=== PATIENT | female | born 1990 | race Caucasian/White ===

== ENCOUNTER → 2017-01-25 | Outpatient (CLI) | payer BC | LOC: BHSO 15:12 | DX: F41.1 Generalized anxiety disorder (principal) ==

== ENCOUNTER → 2017-07-22 | Outpatient (CLI) | payer BC | LOC: BHSO 09:42 | DX: F90.0 Attention-deficit hyperactivity disorder, predominantly inattentive type (principal) ==

== ENCOUNTER → 2018-01-20 | Outpatient (CLI) | payer BC | LOC: BHSO 12:57 | DX: F90.0 Attention-deficit hyperactivity disorder, predominantly inattentive type (principal) | CPT/HCPCS: G0463 ==

== ENCOUNTER → 2018-08-04 | Outpatient (CLI) | payer BC | LOC: BHSO 12:57 | DX: F90.0 Attention-deficit hyperactivity disorder, predominantly inattentive type (principal) | CPT/HCPCS: G0463 ==

== ENCOUNTER → 2019-01-30 | Outpatient (CLI) | payer BC | LOC: BHSO 12:59 | DX: F90.0 Attention-deficit hyperactivity disorder, predominantly inattentive type (principal) | CPT/HCPCS: G0463 ==

== ENCOUNTER → 2019-08-21 | Outpatient (CLI) | payer BC | LOC: BHSO 08:50 | DX: F41.1 Generalized anxiety disorder (principal) ==

== ENCOUNTER 2021-11-29 12:21 | Outpatient (CLI) | payer BC ==
[~2021-11-29] VITALS: Ht 167.6 cm; Wt 78.0 kg
--- NOTE | 2021-11-29 12:35 | NUR ---
259073.1, G1L0 arrives on unit with c/o increaed pink vaginal discharge and lower abdominal cramping/contractions every 30min while working. States she has only experienced one contraction in last 2 hours. Reports normal movement. Denies any bright red vaginal bleeding. Ambulatory to LDR3 and changes into clean gown. [id number] explained and placed. Assessment completed. VS obtained. 1311Dr. Roles updated on pt. See physician notification. Pt and spouse updated on plan of care. Denies questions or needs at this time.
[2021-11-29 12:40] VITALS: BP 122/84; PULSE 80; TEMP 98
[2021-11-29] MEDS ORDERED: GLUCOPHAGE500 MG/TAB PO (12:58)
[2021-11-29] MEDS ORDERED: PRENATAL TABLET PO (12:58)
[2021-11-29 13:30] VITALS: BP 124/85; PULSE 84
--- NOTE | 2021-11-29 13:40 | NUR ---
1340Dr. Roles on unit and reviews strips. See physician notification. 1343EFM off. Pt up to change. 1400Discharge instructions reviewed with pt and spouse who verbalize understanding. Ambulatory off unit.
[2021-11-29 13:43] VITALS: BP 120/86; PULSE 78
== END 2021-11-29 14:00 | disposition home or self-care (01) ==
LOC: LDRO 12:21
DX: O26.853 Spotting complicating pregnancy, third trimester (principal); O26.893 Other specified pregnancy related conditions, third trimester; R10.9 Unspecified abdominal pain; Z3A.38 38 weeks gestation of pregnancy

== ENCOUNTER 2021-12-06 09:16 | Inpatient (IN) | payer BC ==
[~2021-12-06] VITALS: Ht 167.6 cm; Wt 77.7 kg
[~2021-12-06 09:16] MED LIST: GLUCOPHAGE500 MG/TAB PO; PRENATAL TABLET PO
[2021-12-07] VITALS (17 sets, daily range): BP systolic 90–127; BP diastolic 57–75; PULSE 56–86; TEMP 98–98.7
--- NOTE | 2021-12-07 09:39 | NUR ---
178042.2, G1L0 arrives on unit for scheduled primary c/s. Ambulatory to 209 with spouse. Changes into clean gown. Reports normal movement, and rare ctx. Denies any LOF or VB. 0945IV to left wrist. Routine labs obtained. LR bolus infusing. Assessment completed. VS obtained. 1000Consent forms explained and signed. Plan of care reviewed. Pt resting with call light within reach.
[2021-12-07 10:03] LABS: BASO # 0.1 K/mm3 (0.0-0.2); BASO % 0.6 % (0.0-2.0); EOS # 0.1 K/mm3 (0.0-0.7); EOS % 0.8 % (0.0-4.0); GRAN # 7.1 K/mm3 (1.4-6.5); GRAN % 67.1 % (42.2-75.2); HEMATOCRIT 37.6 % (37.0-47.0); HEMOGLOBIN 13.3 g/dl (12.5-16.0); LYMPH # 2.6 K/mm3 (1.2-3.4); LYMPH % 24.9 % (20.0-51.0); MEAN CELL VOLUME 93 fl (80.0-100.0); MEAN CORPUSCULAR HEMOGLOBIN 33 pg (27-31); MEAN CORPUSCULAR HGB CONC 35 g/dl (33.0-37.0); MEAN PLATELET VOLUME 11.3 fl (7.4-10.4); MONO # 0.6 K/mm3 (0.1-0.6); PLATELET COUNT 256 K/mm3 (130-400); RED BLOOD COUNT 4.03 M/mm3 (4.10-5.30); REDCELL DISTRIBUTION WIDTH-CV 13.1 % (11.5-14.5)
--- NOTE | 2021-12-07 17:45 | NUR ---
1745 - ATTEMPT TO AMBULATE WITH PATIENT TO BATHROOM. PATIENT DIZZY UPON STANDING AT BEDSIDE. PATIENT RETURNED TO BED AND ENCOURAGED TO INCREASE FLUID INTAKE. FUNDUS FIRM. BLEEDING WNL. VSS - BP109/73 HR58 RR18 O2 96%. PLAN OF CARE TO ATTEMPT AMBULATION AFTER DINNER DISCUSSED WITH PATIENT AND SPOUSE. WILL CONTINUE TO MONITOR.
[2021-12-08 02:30] VITALS: BP 113/65; PULSE 77; TEMP 98
[2021-12-08 07:45] VITALS: BP 98/60; PULSE 73; TEMP 97.8
--- NOTE | 2021-12-08 09:40 | NUR ---
Initial visit; Parents thanked for offering congratulations and God's blessings for the of their son. Fire Inspector thanked family for choosing our hospital where great grandma is a volunteer.
[2021-12-08 16:30] VITALS: BP 114/68; PULSE 78; TEMP 98.7
[2021-12-08 21:00] VITALS: BP 115/63; PULSE 84; TEMP 97.7
[2021-12-09 08:30] VITALS: BP 111/74; PULSE 73; TEMP 98.1
[2021-12-09] MEDS ORDERED: PERCOCET 325 MG1 TA2 PO ×2 (13:20)
[2021-12-09] MEDS ORDERED: IBU800 M1 PO ×2 (13:20)
[2021-12-09 17:30] VITALS: BP 112/77; PULSE 88; TEMP 98.4
[2021-12-09 20:15] VITALS: BP 117/81; PULSE 78; TEMP 97.9
[2021-12-10 07:15] VITALS: BP 119/74; PULSE 70; TEMP 98.4
[2021-12-10] MEDS ORDERED: PERCOCET 325 MG1 TA2 PO (09:24)
[2021-12-10] MEDS ORDERED: IBU800 M1 PO (09:24)
== END 2021-12-10 10:55 | disposition home or self-care (01) | DRG 784 ==
LOC: LDR 12-07 09:15 → OB 12-07 09:35
PROVIDERS: ADMIT Obstetrics & Gynecology
PROC: 10D00Z1 Extraction of Products of Conception, Low, Open Approach (ICD-10-PCS; principal; 2021-12-07)
PROC: 0UB60ZZ Excision of Left Fallopian Tube, Open Approach (ICD-10-PCS; 2021-12-07)
DX: O44.23 Partial placenta previa NOS or without hemorrhage, third trimester (principal); O98.32 Other infections with a predominantly sexual mode of transmission complicating childbirth; N83.8 Other noninflammatory disorders of ovary, fallopian tube and broad ligament; O99.344 Other mental disorders complicating childbirth; F90.9 Attention-deficit hyperactivity disorder, unspecified type; O99.284 Endocrine, nutritional and metabolic diseases complicating childbirth; E03.9 Hypothyroidism, unspecified; E28.2 Polycystic ovarian syndrome; O09.03 Supervision of pregnancy with history of infertility, third trimester; O26.893 Other specified pregnancy related conditions, third trimester; N97.9 Female infertility, unspecified; A60.09 Herpesviral infection of other urogenital tract; O69.81X0 Labor and delivery complicated by cord around neck, without compression, not applicable or unspecified; Z3A.39 39 weeks gestation of pregnancy; Z37.0 Single live birth
CPT/HCPCS: J0690; J1885; J2175; J2270; J2370; J2590; J7120

== ENCOUNTER 2024-07-26 04:22 | Outpatient (CLI) | payer BC ==
[~2024-07-26] VITALS: Ht 170.2 cm; Wt 79.5 kg
[~2024-07-26 04:22] MED LIST changes: +IBU800 M1 PO; +PERCOCET 325 MG1 TA2 PO
[2024-07-26] MEDS ORDERED: LR 1,000 ML IV PRN (04:45)
[2024-07-26] MEDS ORDERED: GLUCOPHAGE XR500 M1 PO (05:00)
[2024-07-26 05:01] VITALS: BP 134/89; PULSE 62; TEMP 98.7
[2024-07-26 05:30] VITALS: BP 138/89; PULSE 56
--- NOTE | 2024-07-26 05:30 | NUR ---
DR HECK NOTIFIED PT IS HERE. SHE IS PLANNING TO . INFORMED HIM CTX'S STARTED 2300 LAST NIGHT, SOME ARE MUCH STRONGER THAN OTHERS. THE STRONG ONES SHE WILL STOP TALKING TO BREATH THROUGH THEM. SVE /-2. PINKISH BLOODY SHOW NOTED. GBS NEGATIVE. 39 WEEKS, FHR 125 CATEGORY 1. CTX'S HAVE BEEN 3-5 MINS ON THE MONITOR. PREIOUS C/S WAS FOR PARTIAL PLACENTA PREVIA. PT IS REQUESTING TO AMB IN [place]. ORDERS TO WATCH FOR ONE HOUR, PT MAY AMB IN THE [place], RECHECK CERVIX AND NOTIFY HIM. PT ALSO HAS THE OPTION TO GO HOME IF SHE WANTS TO.
--- NOTE | 2024-07-26 06:56 | NUR ---
0628 UMANG MUNOZ UPDATED ON PT RECHECK, SVE REMAINS UNCHANGED, FHTS REACTIVE, CTX PATTERN, PT GESTATION 38.5, PT STATEMENTS [place] LIVES IN [place]. GIVES ORDERS TO KEEP PT AN ADDITIONAL HOUR AND RECHECK PT AND CALL [facility] FOR FURTHER ORDERS. JURGEN WILCOX.
--- NOTE | 2024-07-26 06:59 | NUR ---
0687 RN BEDSIDE DISCUSSING POC WITH PT, RN RELAYS MD ORDERS, EXPLAINS LABOR CHECK REASONING/PROCESS. PT STATES "IM TO THE POINT WHERE I WANT AN EPIDURAL OR A POSSIBLE REPEAT ." RN RE-EXPLAINS PROCESS AND PLAN. PT VERBALIZES UNDERSTANDING.
--- NOTE | 2024-07-26 07:51 | NUR ---
0769 KENNY MUNOZ UPDATED ON PT ARRIVAL, HISTORY, SVE X2 UNCHANGED, FHTS REACTIVE, CTX PATTERN, RN PALPATED CTX X1 TO BE MILD TO MODERATE, PT STATEMENTS THAT SHE WOULD "LIKE AN EPIDURAL OR ", RN EXPLANATIONS OF PROCESS OF LABOR CHECKS, PT SCHEDULED FOR REPEAT ON 08/06. ORDERS FROM KENNY TO OFFER PT TYLENOL AND DISCHARGE HOME WITH LABOR PRECAUTIONS. RN RBVO.
--- NOTE | 2024-07-26 08:20 | NUR ---
0809 PT GIVEN BOTH WRITTEN AND VERBAL DISCHARGE INSTRUCTIONS. PT INSTRUCTED TO CALL/COME BACK IF PT NOTICES ANY LOF, VB, DFM, STRONG/REGULAR CTX OR ANY OTHER CHANGES/CONCERNS. PT VERBALIZES UNDERSTANDING AND ALL QUESTIONS ANSWERED AT THIS TIME.
== END 2024-07-26 08:10 | disposition home or self-care (01) ==
LOC: LDRO 04:22
DX: O47.9 False labor, unspecified (principal); Z3A.00 Weeks of gestation of pregnancy not specified

== ENCOUNTER 2024-07-26 13:43 | Outpatient (CLI) | payer BC ==
[2024-07-26] VITALS (7 sets, daily range): BP systolic 122–148; BP diastolic 76–95; PULSE 67–86; TEMP 97.7
[~2024-07-26] VITALS: Ht 167.6 cm; Wt 78.2 kg
[~2024-07-26 13:43] MED LIST changes: +GLUCOPHAGE XR500 M1 PO
--- NOTE | 2024-07-26 13:50 | NUR ---
PATIENT AMBUALTORY TO UNIT WITH SPOUSE, MARYANN. PATIENT ORIENTED TO LABOR ROOM 4 AND ASSISTED INTO A GOWN. PATIENT REPORTS MORE INTENSE CONTRACTIONS THAT ARE 2-3 MINUTES APART, NO LEAKING OF FLUID OR VAGINAL BLEEDING, AND GOOD MOVEMENT. EFM AND TOCO PLACED AND TRACING. SVE /-2. ASSESSMENTS COMPLETED. PATIENT UPDATED ON PLAN FOR LABOR CHECK.
[2024-07-26] MEDS ORDERED: LR 1,000 ML IV PRN (15:45)
--- NOTE | 2024-07-26 17:00 | NUR ---
DISCHARGE TEACHING REVIEWED WITH PAITENT AND SPOUSE, PATIENT VERBALIZES UNDERSTANDING. [facility] AMBULATORY OFF UNIT WITH SPOUSE IN STABLE CONDITION.
== END 2024-07-26 17:00 | disposition home or self-care (01) ==
LOC: LDRO 13:43
DX: Z34.93 Encounter for supervision of normal pregnancy, unspecified, third trimester (principal); Z3A.39 39 weeks gestation of pregnancy

== ENCOUNTER 2024-07-26 21:49 | Inpatient (IN) | payer BC ==
[~2024-07-26] VITALS: Ht 162.6 cm; Wt 71.8 kg
--- NOTE | 2024-07-26 21:50 | NUR ---
PT PRESENTS TO L&D AGAIN. SHE WAS HERE EARLIER TODAY BUT HER CERVIX DID NOT CHANGE SO SHE WAS DISCHARGED TO HOME. PT IS TRYING TO TOLAC AND DELIVER VAGINALY. PT IS CRYING, SHAKING, SWEATING, SHE STATES SHE HAS NOT BEEN ABLE TO EAT OR DRINK ANYTHING SINCE YESTERDAY. SHE IS VERY NAUSEATED AND HAS THROWN UP 6-7 TIMES TODAY. PT VERY STRESSED AND ANXIOUS STATES SHE CAN'T TAKE THE PAIN ANY MORE. THE CONTRACTIONS ARE GETTING WORSE AND SHE IS DEHYDRATED AND. PT LIPS ARE DRY AND CRACKED. PT TO BED, MONITORS ON FHR 145, CATEGORY 1. 3-4 MINS APART ARE PALPATING STRONG. SVE /-1.
[2024-07-26] MEDS ORDERED: LR 1,000 ML IV SCH (22:15)
[2024-07-26] MEDS ORDERED: ROPivacaine PF 0.2% 200 ML IV ONE (22:19)
[2024-07-26 22:30] VITALS: BP 100/68; PULSE 80; TEMP 98.6
--- NOTE | 2024-07-26 22:30 | NUR ---
pt sitting up for epidural placement. Dharmesh Serna SUSTAINABLE SYSTEMS ANALYST here. time out done.
[2024-07-26 22:31] LABS: BASO % 0.2 % (0.0-2.0); GRAN # 15.5 K/mm3 (1.4-6.5); GRAN % 84.1 % (42.2-75.2); HEMOGLOBIN 12.8 g/dl (12.5-16.0); LYMPH # 2.1 K/mm3 (1.2-3.4); LYMPH % 11.3 % (20.0-51.0); MEAN CELL VOLUME 91 fl (80.0-100.0); MEAN CORPUSCULAR HEMOGLOBIN 33 pg (27-31); MEAN CORPUSCULAR HGB CONC 36 g/dl (33.0-37.0); MEAN PLATELET VOLUME 11.3 fl (7.4-10.4); MONO # 0.7 K/mm3 (0.1-0.6); MONO % 3.9 % (1.7-9.3); PLATELET COUNT 249 K/mm3 (130-400); REDCELL DISTRIBUTION WIDTH-CV 13.1 % (11.5-14.5)
[2024-07-26 22:37] LABS: HEMATOCRIT 35.6 % (37.0-47.0)
[2024-07-26 23:00] VITALS: BP 118/77; PULSE 84; TEMP 98.2
[2024-07-26 23:15] VITALS: BP 114/69; PULSE 104
[2024-07-26 23:30] VITALS: BP 108/68; PULSE 114
--- NOTE | 2024-07-26 23:30 | NUR ---
MEJIA CATH PLACED WITH RETURN OF CLEAR YELLOW URINE. SVE /-1.
--- NOTE | 2024-07-26 23:36 | NUR ---
2335-- BP70/40, P 68, PT STATES SHE IS NAUSEATED. IV BOLUS STARTED. 2338-- EPHEDRINE 10 MG IVP GIVEN BP92/56 95/54 87/53 90/57 2352 ATTEMPTED TO CALL SHAYNE LOPEZ CRNA, NO ANSWER MULTIPLE TIME. CHARGE NURSE ARNALDO RN NOTIFIED I WAS NOT ABLE TO GET HOLD OF SHAYNE AND THERE WERE NO EPIDURAL ORDERS. ARNALDO CALLED MULTIPLE TIMES AND NOT ABLE TO GET HOLD OF SHAYNE. SHE CALLED SUNNY XIONG CRNA HE GAVE US ORDERS FOR EPHEDRINE A THRID DOSE AND TO BOLUS ANOTHER 500 CC IV LR. 2353--BP 77/50, 74/48, EPHEDRINE 10 MG IVP GIVEN. HOB DOWN, PILLOW PLACED UNDER PT'S LEGS 99/64 2358 IV BAG #3 LR HUNG AND BOLUSING 0010 BP 72/42 0012 EPHEDRINE 10MG #3 DOSE GIVEN IVP. 0013 ZOFRAN 4 MG IVP GIVEN 0020 BP 95/47, 79/46 0030 BP 149/70
[2024-07-26 23:45] VITALS: BP 95/51; PULSE 92
[2024-07-26] MEDS ORDERED: ePHEDrine 50 MG/ML VIAL IV ONE (23:45)
[2024-07-26] MEDS ORDERED: ePHEDrine 50 MG/10 ML VIAL IV ONE (23:51)
[2024-07-27] VITALS (56 sets, daily range): BP systolic 86–151; BP diastolic 51–97; PULSE 54–115; TEMP 97.8–99.3
[2024-07-27] MEDS ORDERED: Naloxone 0.4 MG/ML VIAL IV PRN ×2 (00:30→14:30)
[2024-07-27] MEDS ORDERED: diphenhydrAMINE 25 MG CAP PO PRN (00:30)
[2024-07-27] MEDS ORDERED: diphenhydrAMINE 50 MG/ML 1 ML VIAL IV PRN (00:30)
[2024-07-27] MEDS ORDERED: Ondansetron 4 MG/2 ML VIAL IV PRN (00:30)
[2024-07-27] MEDS ORDERED: ePHEDrine 50 MG/10 ML VIAL IV PRN (00:30)
--- NOTE | 2024-07-27 01:32 | NUR ---
DR COX HERE TO SEE PT, SVE /-1, AROM FLUID CLEAR WITH BLOODY SHOW NOTED. BP112/71, P 83 TEMP 98.7. PT TOLERATED PROCEDURE WELL.
[2024-07-27] MEDS ORDERED: Famotidine 20 MG TAB PO ONE (01:45)
--- NOTE | 2024-07-27 08:00 | NUR ---
DR. HECK AT BEDSIDE FOR SVE OF . DISCUSSED PITOCIN USE, PT AGREED TO STARTING PITOCIN.
[2024-07-27] MEDS ORDERED: LR & Oxytocin 500 ML IV SCH (08:15)
--- NOTE | 2024-07-27 11:35 | NUR ---
DR. HECK ON UNIT, DISCUSSED PT PROGRESS, REVIEWED EFM, WILL PERFORM SVE AFTER SUNNY DOSES EPIDURAL.
[2024-07-27] MEDS ORDERED: NS 10 ML IV ONE (11:51)
[2024-07-27] MEDS ORDERED: Lidocaine PF 2% (20 MG/ML) 5 ML VIAL ONE (11:51)
[2024-07-27] MEDS ORDERED: ROPivacaine PF 0.2% 200 ML IV ONE (11:59)
--- NOTE | 2024-07-27 13:02 | NUR ---
1146 PT COMPLETE +1 STATION. EFM CAT 2. VS STABLE. 1150 SUNNY, RETAIL DELIVERY DRIVER AT BEDSIDE TO BOLUS PT D/T R SIDE PAIN. 1152 SUNNY BOLUSED PT, VS STABLE, EFM CAT 1. 1220 MEJIA REMOVED, NOTIFIED OF SVE, STARTED PUSHING AT THIS TIME. 1255 CHARGE NURSE, NSY NURSE, THIS RN, AND AT BEDSIDE. ROOM SET FOR DELIVERY. 1302 OF VIABLE MALE PER . CORD CLAMPED AND CUT BY FOB, INFANT PLACED ON MATERNAL ABDOMEN AND CARE ASSUMED BY NSY RN. 1305 OF PLACENTA PER . FUNDUS FIRM AT U, LOCHIA WNL, VS STABLE. PT BEGAN FEELING LIGHT HEADED AND NAUSEOUS, BABY TAKEN TO FOB FOR SKIN TO SKIN, GAVE PT SPRITE, BP STABLE. BEGINS REPAIR OF SECOND DEGREE LACERATION, PT TOLERATED WELL. 1310 ROOM PUT BACK TOGETHER, ICE PACK PAD PLACED, PT COMFORTABLE. FUNDUS FIRM AT U, LOCHIA WNL, VS STABLE. BABY SKIN TO SKIN WITH FOB.
[2024-07-27] MEDS ORDERED: Loratadine 10 MG TAB PO PRN (13:30)
[2024-07-27] MEDS ORDERED: Magnes Hydrox (MOM) 80 MG/ML 30 ML CUP PO PRN (13:30)
[2024-07-27] MEDS ORDERED: Tdap Vaccine 0.5 ML SYRINGE IM SCH (14:30)
[2024-07-27] MEDS ORDERED: Phenylephrine/Mineral Oil/Petrolatum 57 GM TUBE RC PRN (14:30)
[2024-07-27] MEDS ORDERED: Ibuprofen 800 MG TAB PO SCH (14:30)
[2024-07-27] MEDS ORDERED: Witch Hazel 50% Pads Bulk TUB TP PRN (14:30)
[2024-07-27] MEDS ORDERED: Measles/Mumps/Rubella Virus Vaccine Live w Diluent 0.5 ML VIAL SQ SCH (14:30)
[2024-07-27] MEDS ORDERED: Mag/Al Hydrox/Simeth Susp 30 ML CUP PO PRN (14:30)
[2024-07-27] MEDS ORDERED: Acetaminophen 500 MG TAB PO SCH (14:30)
[2024-07-27] MEDS ORDERED: oxyCODONE 5 MG TAB PO PRN (14:30)
--- NOTE | 2024-07-27 16:30 | NUR ---
PT ABLE TO LIFTS LEGS AND HOLD 5 SECONDS EACH. MOVED TO SIDE OF BED, EPIDURAL CATHETER REMOVED, PT ABLE TO STAND AT SIDE OF BED COMFORTABLE. AMBULATORY TO BATHROOM, VOIDED, GOWN, PANTIES AND PAD CHANGED. PT AMBULATORY TO ROOM, COMFORTABLE IN BED.
[2024-07-27] MEDS ORDERED: Sennosides/Docusate 8.6-50 MG TAB PO SCH (17:00)
[2024-07-27] MEDS ORDERED: traZODone 50 MG TAB PO PRN (21:00)
[2024-07-28 05:00] VITALS: BP 106/68; PULSE 70; TEMP 98.2
[2024-07-28] MEDS ORDERED: MOTRIN 800800 MG/TAB PO (07:17)
[2024-07-28] MEDS ORDERED: ROXICODONE 55 MG/TAB PO (07:17)
--- NOTE | 2024-07-28 10:06 | NUR ---
Initial visit; Parents thanked Cartridge Gauger for introducing herself and offering congratulations and God's blessings for the of their son. Cartridge Gauger thanked them for choosing [facility].
--- NOTE | 2024-07-28 15:00 | NUR ---
PT DISCHARGE EDUCATION GIVEN, PT VERBALIZED UNDERSTANDING. ALL PT BELONGINGS GATHERED, ACCOUNTED FOR AND TAKEN TO VEHICLE PER PT'S . PT DENIES ANY QUESTIONS. PT AMBULATES OFF THE UNIT WITH SPOUSE AND WITH VIA PAM STAFF. NO OTHER CONCERNS.
== END 2024-07-28 15:00 | disposition home or self-care (01) | DRG 807 ==
LOC: LDRO 21:49 → LDR 22:13 → OB 07-27 16:30
PROVIDERS: Obstetrics & Gynecology; ADMIT Obstetrics & Gynecology
PROC: 10E0XZZ Delivery of Products of Conception, External Approach (ICD-10-PCS; principal; 2024-07-27)
PROC: 0KQM0ZZ Repair Perineum Muscle, Open Approach (ICD-10-PCS; 2024-07-27)
PROC: 10907ZC Drainage of Amniotic Fluid, Therapeutic from Products of Conception, Via Natural or Artificial Opening (ICD-10-PCS; 2024-07-27)
PROC: 3E033VJ Introduction of Other Hormone into Peripheral Vein, Percutaneous Approach (ICD-10-PCS; 2024-07-27)
DX: O75.89 Other specified complications of labor and delivery (principal); Z37.0 Single live birth; O99.284 Endocrine, nutritional and metabolic diseases complicating childbirth; O70.1 Second degree perineal laceration during delivery; Z3A.39 39 weeks gestation of pregnancy; Z87.59 Personal history of other complications of pregnancy, childbirth and the puerperium; O34.211 Maternal care for low transverse scar from previous cesarean delivery; Z23 Encounter for immunization
CPT/HCPCS: J2405; J2590; J2795; J7120